=== PATIENT | male | born 1975 | race Caucasian/White ===

== ENCOUNTER 2025-03-06 07:10 | Day surgery (SDC) | payer OTHER ==
[2025-03-02 09:14] VITALS: BMI 25.1
[2025-03-06] MEDS ORDERED: Lidocaine 1% w/Epinephrine 1:200K 30 ML VIAL ONE (08:21)
[2025-03-06] MEDS ORDERED: PROPOFOL 20 ML ONE (08:32)
[2025-03-06] MEDS ORDERED: Ondansetron PF 4 MG/2 ML Vial ONE (08:32)
[2025-03-06] MEDS ORDERED: Rocuronium Bromide 10 MG/ML (10ML VIAL) ONE (08:32)
[2025-03-06] MEDS ORDERED: SUGAMMADEX SODIUM 200 MG/2 ML VIAL ONE (08:32)
[2025-03-06] MEDS ORDERED: Lidocaine 1% PF 5 ML VIAL ONE (08:32)
[2025-03-06] MEDS ORDERED: HYDROcodone/Acetaminophen 5/325 mg Tablet ONE (10:55)
== END 2025-03-06 11:30 | disposition home or self-care (01) ==
LOC: CSHSDC 07:10
PROVIDERS: ATTEND Otolaryngology Otolaryngic Allergy
PROC: 0CBR8ZX Excision of Epiglottis, Via Natural or Artificial Opening Endoscopic, Diagnostic (ICD-10-PCS; principal; 2025-03-06)
PROC: 0BJ08ZZ Inspection of Tracheobronchial Tree, Via Natural or Artificial Opening Endoscopic (ICD-10-PCS; principal; 2025-03-06)
DX: J38.7 Other diseases of larynx (principal); G43.909 Migraine, unspecified, not intractable, without status migrainosus; F32.A Depression, unspecified; F41.9 Anxiety disorder, unspecified; Z87.891 Personal history of nicotine dependence; Z79.899 Other long term (current) drug therapy
CPT/HCPCS: 88304; J0169; J1100; J2405; J2704; J3010